=== PATIENT | female | born 1945 | race Caucasian/White ===

== ENCOUNTER 2025-06-01 13:11 | Outpatient (AMB) | payer MEDICARE, SELFPAY ==
--- NOTE | 2025-06-01 13:13 | MHC.OFFVIS ---
Vital Signs 06/01/25 13:20 Height 5 ft 3 in Weight 188 lb 6 oz BMI 33.4 BP 142/80 H Blood Pressure Location Rt brachial Pulse 61 Pulse Source Pulse Oximeter Pulse Oximetry (%) 94 Oxygen Delivery Method Room Air Intake Visit Reasons: ENP - Tremor Intake Note: Tremor Insurance Service Representative Required: No Accompanied by: Self / Same As Patient Allergies enalapril Allergy (Unknown, Verified 06/01/25 13:22) Unknown Medication List - Last Reconciled 06/01/25 by Elissa Beckham MD albuterol sulfate 90 mcg/actuation 2 puffs inhalation Q4-6H PRN amlodipine 5 mg PO DAILY aspirin 81 mg PO DAILY cholecalciferol (vitamin D3) 25 mcg PO DAILY clopidogrel 75 mg PO DAILY furosemide 20 mg PO DAILY gabapentin 100 mg PO BEDTIME levothyroxine 50 mcg PO DAILY mecobalamin (vitamin B12) 1,000 mcg sublingual DAILY ropinirole 2 mg PO BEDTIME triamcinolone acetonide 0.1% appl topical BID PRN venlafaxine ER 150 mg PO QAM HPI Comments Details: 79y/o Right handed female comes for evaluation of tremors she started noticing tremors in her hands about 1 year ago. The tremors are mostly with postures and action.No tremors at rest. Holding a cup of coffee is hard. She has trouble writing. No head or voice tremors she has restless legs - on ropinirole , reports shocking sensations , abnormal movemenst at rest and when she is trying to sleep. Once she falls asleep she is OK. No family h/o tremors No head injury. [facility] Medical History (Updated 06/01/25 @ 14:01 by Elissa Beckham MD) Restless legs syndrome (RLS) Coarse tremors Macular degeneration Osteoarthrosis Anxiety Esophageal reflux Chronic obstructive asthma Pulmonary emphysema Hyperlipidemia Hypothyroidism Lumbar canal stenosis RLS (restless legs syndrome) Vitamin D deficiency CKD stage 3b, GFR 30-44 ml/min Chronic kidney disease, stage III (moderate) HTN (hypertension) Impaired fasting glucose Melanosis coli Back pain of lumbar region with sciatica Bilateral hip joint arthritis Chronic pain of both knees Fatigue Foot pain, bilateral Lung nodule Post-traumatic osteoarthritis, right ankle and foot Hair loss Osteoarthritis of both feet Paresthesia Prediabetes Skin lesion Class 1 obesity Asthma Retinal artery occlusion Eczema Localized edema Hyperglycemia Tremors of nervous system Family History Other No family history of cancer Social History Alcohol intake: never Patient Tobacco Use Status: Never used Tobacco Physical Exam Vital Signs: Last Vital Signs Pulse 61 06/01/25 13:20 BP 142/80 H 06/01/25 13:20 Pulse Ox 94 06/01/25 13:20 Oxygen Delivery Method Room Air 06/01/25 13:20 BMI result Body Mass Index 33.4 Const General: cooperative, healthy appearing, comfortable and no acute distress Nutritional Appearance: overweight Orientation/consciousness: patient oriented x3 Eyes Pupils: Equal, round and reactive pupils present Neuro Other: derrick UE posturla and action tremors - mild she was able to do archimedes spiral with mild difficulty Gait- antalgic without cane General: patient oriented x3, tone normal, moves all extremities and no focal motor deficits Cranial nerves: Yes Facial sensation intact/muscles of mastication intact, Yes Equal, round and reactive pupils present, Yes Bilaterally intact EOM present, Yes Nystagmus not present, Yes Normal facial strength present, Yes Midline tongue present, Yes Symmetric palate elevation present, Yes Ability to bilaterally rotate head present and Yes Ability to bilaterally elevate shoulders present Cognition (Neuro): normal cognition Gait exam (Neuro): Antalgic gait present Motor exam (neuro): 5/5 motor strength present throughout and Normal motor muscle tone present throughout Deep tendon reflexes (DTR's): Right triceps reflex intensity grade: 1+, Left triceps reflex intensity grade: 1+, Rt Biceps (C5, C6): 1+, Left biceps reflex intensity grade: 1+, Right brachioradialis reflex intensity grade: 1+, Left brachioradialis reflex intensity grade: 1+, Right patellar reflex intensity grade: 1+ and Left patellar reflex intensity grade: 1+ Coordination: [id number] test normal Assessment & Plan Assessment & Plan (1) Coarse tremors: Comment: likely senile tremors Code(s): G25.2 - Other specified forms of tremor Category: Medical (2) Restless legs syndrome (RLS): Code(s): G25.81 - Restless legs syndrome Category: Medical Plan No evidence of parkinsons on todays exam Tremors doed not affect her ADLS - i will monitor her clinically and consider medictaions if she worsens\ I will change her ropirnirole to ER 4mg qhs for better controle Medications: New ropinirole ER 4 mg PO BEDTIME 30 tabs 6RF Coding Level of Care Code New Pt Level 4 (98385) Complex EM visit Add On G2211 Diagnoses Coarse tremors G25.2 Restless legs syndrome (RLS) G25.81 BFADL Questionnaire: Cut food with a knife and fork: 1 - Able to do activity without difficulty, Use a spoon to drink soup: 2 - Able to do activity with a little effort, Hold a cup of tea: 3 - Able to do activity with a lot of effort, Pour milk from a bottle or carton: 2 - Able to do activity with a little effort, Wash and dry dishes: 1 - Able to do activity without difficulty, Molt your teeth: 1 - Able to do activity without difficulty, Use a handkerchief to blow your nose: 1 - Able to do activity without difficulty, Use a bath: 1 - Able to do activity without difficulty, Use the lavoratory: 1 - Able to do activity without difficulty, Wash your face and hands: 1 - Able to do activity without difficulty, Do up buttons: 3 - Able to do activity with a lot of effort, Do up a zip: 2 - Able to do activity with a little effort, Write a letter: 3 - Able to do activity with a lot of effort, Put a letter in an envelope: 3 - Able to do activity with a lot of effort, Hold and read a newspaper: 2 - Able to do activity with a little effort, Dial a telephone: 3 - Able to do activity with a lot of effort, Make yourself understood on a telephone: 3 - Able to do activity with a lot of effort, Watch television: 1 - Able to do activity without difficulty, cupola tender helper your change in a shop: 3 - Able to do activity with a lot of effort, Inset an electrical plug into a socket: 3 - Able to do activity with a lot of effort, Unlock your front door with a penny: 3 - Able to do activity with a lot of effort, Walk up and down stairs: 3 - Able to do activity with a lot of effort, Get up out of an armchair: 2 - Able to do activity with a little effort and Carry a full shopping ba - Able to do activity with a little effort
[2025-06-01 13:20] VITALS: BP 142/80; PULSE 61; O2SAT 94; BMI 33.4
--- OUTSIDE RECORDS SUMMARY | 2025-06-01 14:36 | XMS_ITS | Clinical Summary ---
Author Organization [facility] Address [address] [place] [address] Phone Care Team Providers Care Gutter Mouth Cutter Name Role Phone Cameron Herrera MD Primary Care Provider Allergies Active Allergy Reactions Criticality Noted Date Comments Enalapril 12/27/2013 Enalapril Maleate 02/27/2021 Medications senna-docusate (PERICOLACE) 8.6-50 mg per tablet Take 1 tablet by mouth 1 (one) time each day if needed. 06/22/20 24 Active cyanocobalamin , vitamin B-12, 1,000 mcg capsule Take 1 capsule by mouth 1 (one) time each day. 11/03/19 24 Active cholecalcifero l (VITAMIN D-3) 25 mcg (1,000 unit) tablet Take by mouth. Active aspirin 81 mg EC tablet Take 1 tablet (81 mg total) by mouth 1 (one) time each day. 12/28/19 24 Active albuterol HFA (PROAIR HFA ; PROVENTIL HFA ; VENTOLIN HFA) 90 mcg/actuation inhaler Inhale 2 puffs by mouth every 4 (four) hours if needed. Active triamcinolone (KENALOG) 0.1 % cream Apply topically 2 (two) times a day. Active amLODIPine (NORVASC) 5 mg tablet Take 1 tablet (5 mg total) by mouth 1 (one) time each day. 90 each 3 12/15/19 25 026 Active cloNIDine (Catapres-TTS- 1) 0.1 mg/[address] 1 patch on the skin 1 (one) time per week. 13 each 3 12/15/19 25 026 Active venlafaxine XR (EFFEXOR-XR) 150 mg 24 hr capsule TAKE 1 CAPSULE BY MOUTH DAILY WITH BREAKFAST 90 capsule 1 01/03/20 25 Active levothyroxine (SYNTHROID, LEVOTHROID) 50 mcg tablet TAKE 1 TABLET BY MOUTH DAILY 90 tablet 1 01/11/20 25 Active rOPINIRole (REQUIP) 2 mg tablet TAKE 1 TABLET BY MOUTH DAILY AT LEAST 1 HOUR PRIOR TO BEDTIME 90 tablet 1 01/27/20 25 Active furosemide (LASIX) 20 mg tablet TAKE 1 TABLET(20 MG) BY MOUTH 1 TIME EACH DAY 90 tablet 05/23/20 25 Active clopidogreL (PLAVIX) 75 mg tablet TAKE 1 TABLET BY MOUTH DAILY 90 tablet 05/23/20 25 Active gabapentin (NEURONTIN) 100 mg capsule TAKE 1 CAPSULE BY MOUTH EVERY NIGHT AT BEDTIME 90 capsule 05/23/20 25 Active clopidogreL (PLAVIX) 75 mg tablet TAKE 1 TABLET BY MOUTH DAILY 90 tablet 1 10/31/19 25 025 Discontinued furosemide (LASIX) 20 mg tablet TAKE 1 TABLET(20 MG) BY MOUTH 1 TIME EACH DAY 90 tablet 02/25/20 25 025 Discontinued gabapentin (NEURONTIN) 100 mg capsule TAKE 1 CAPSULE BY MOUTH EVERY NIGHT AT BEDTIME 90 capsule 02/25/20 25 025 Discontinued Active Problems Problem Noted Date Diagnosed Date Tremors of nervous system 02/17/2025 Hyperglycemia 02/17/2025 Localized edema 12/14/2024 Eczema 09/09/2024 Retinal artery occlusion 09/09/2024 Asthma 09/09/2024 Class 1 obesity 06/23/2024 Skin lesion 06/22/2024 Prediabetes 10/21/2023 Paresthesia 10/21/2023 Osteoarthritis of both feet 10/21/2023 Hair loss 10/21/2023 Post-traumatic osteoarthritis, right ankle and f oot 10/21/2023 Lung nodule 10/07/2023 Foot pain, bilateral 10/07/2023 Fatigue 10/07/2023 Dyspnea 02/27/2021 Overview (06/23/2024): Dyspnea Chronic pain of both knees 04/27/2018 Bilateral hip joint arthritis 04/27/2018 Back pain of lumbar region with sciatica 018 Arthritis of both hips 04/27/2018 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 Baker is known to me from an L3-4, L4-5 decompression with L4-5 interbody fusion and L3-5 posterior lateral fusion on 03/08/2015 from which she did well. She was last seen here in 2019 for recurrent lower back pain for which she was continuing medical treatment. She presents now to review MRI findings after lumbar study was done in the setting of recurrent pain. She describes pain from my toes up to my neck mostly involving her joints but specifically bilateral knees where she has had TKRs. She was cleared by her orthopedic surgeon. She describes lower back pain into her hips and lateral thighs and numbness in her legs when laying or sitting down. It is unclear if this is related to her restless leg syndrome. She describes occasional urinary leak while walking on the stairs but otherwise remains continent. On exam, she has well-healed knee replacement scars. There is no step-off or deformity lumbar spine, seated SLR is negative, strength 5/5, sensation light touch intact, gait is steady with no assistive device. Review of the lumbar spine MRI from [facility] dated 02/26/2022 shows decompression and interbody grafts at L4-5 with partial bone growth through the grafts. There is intact pedicle screws from L3-L5 which are well-positioned and show no sign of failure. She has increased degenerative changes at the upper lumbar levels since her prior study and now shows severe central stenosis at L1-2 and moderate central stenosis at L2-3. I reviewed this in detail with Ms. Baker and its possible that the severe L1- 2 stenosis is contributing to some of her symptoms. This is not classic claudication where she gets relief with sitting and she does not feel that the back pain stands out in the setting of her the pain throughout her body. She is not interested in considering surgery at this time. She agreed to restarting physical therapy and a referral slip was provided. 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 ([facility] [place] [facility] [place]) 04/05/2015 Esophageal reflux 07/12/2014 Anxiety 07/12/2014 Osteoarthrosis 12/27/2013 Macular degeneration 12/27/2013 Chronic bilateral low back pain with bilateral s ciatica 04/25/2013 Obesity (BMI 30-39.9) 12/29/2012 Encounters Date Type Department Care Team Description 03/22/2025 11:00 AM EDT Consult Vascular Surgery - [place] [address] [facility] [address] [place] [address] Shelia Chand MD Leg swelling from Last 3 Months Immunizations Immunization Administration Dates Next Due Influenza Quadravalent, MDCK , 0.5ml, preservative free (Flucelvax) 6mo and older 07/21/2012 Influenza trivalent, 0.5mL ( Fluad) 65yo and older 05/10/2024,05/06/2023,06/10/2022,07/01,06/05/2020,06/13/2019,06/03/2018 ,06/26/2016,06/19/2015 Influenza trivalent, 0.5mL, preservative free (Fluarix; FluLaval; Fluzone) ages 6mo and older (Afluria) 3 years and older 05/19/2013,05/27/2011,06/03/2010,06/13 Pfizer SARS-CoV-2 COVID-19, mRNA, LNP-S, preservative free 08/28/2021 Pneumococcal conjugate 13 va lent (Prevnar 13, PCV13) 2mo and older 12/18/2014 Pneumococcal polysaccharide 23 valent (Pneumovax 23) 2yo and older 05/15/2009 Surgical History Surgery Date Site/Laterality Comments TOTAL KNEE ARTHROPLASTY PROCEDURE: DE ARTHRP KNE CONDYLE&PLATU MEDIAL&LAT COMPARTMENTS HYSTERECTOMY PROCEDURE: HISTORICAL HYSTERECTOMY BACK SURGERY 03/08/2015 PROCEDURE: HISTORICAL BACK SURGERY; COMMENT: Lumbar fusion Medical History Medical History Date Comments Esophageal reflux DX:Esophageal reflux Hearing loss DX:Hearing loss Essential hypertension DX:Essent ial hypertension Obesity DX:Obesity Vitamin D deficiency DX:Vitamin D deficiency Hyperlipidemia DX:Hyperlipidemi a Hypothyroid DX:Hypothyroid Macular degeneration DX:Macular degeneration Tinnitus, bilateral DX:Tinnitus, bilateral Rotator cuff tear DX:Rotator cuf f tear Restless leg syndrome DX:Restles s leg syndrome Bronchitis DX:Bronchitis Osteoarthritis DX:Osteoarthriti s Chronic kidney disease DX:Chroni c kidney disease Social History Tobacco Use Types Packs/Day Years Used Date Smoking Tobacco: Never Smokeless Tobacco: Never Tobacco Cessation:Counseling Given: Not Answered Housing Instability Answer Date Recorde d Are you worried that in the next 2 months you may not have stable housing? No 02/17/2025 Food Access & Nutrition Answer Date Rec orded Do you have access to a vari ety of food including fruits and vegetables? Yes 02/17/2025 Health Literacy Answer Date Recorded How often do you need to hav e someone help you when you read instructions, pamphlets, or other written material from your doctor or pharmacy? Never 02/17/2025 Caregiver: How often do you need to have someone help you when you read instructions, pamphlets, or other written material from your doctor or pharmacy? Not on file 02/17/2025 Financial Risk Answer Date Recorded How hard is it for you to pa y for the very basics like food, housing, medical care, and air conditioning / heating? Not very hard 02/17/2025 Transportation Answer Date Recorded Has the lack of transportati on kept you from meetings, work, or from getting things needed for daily living? No Has the lack of transportati on kept you from medical appointments or from getting medications? No 02/17/2025 Social Isolation Answer Date Recorded How often do you feel lonely or isolated from th ose around you? Never 02/17/2025 Food Risk Answer Date Recorded Within the past 12 months we worried whether our food would run out before we got money to buy more. Never true 02/17/2025 Within the past 12 months th e food we bought just didn't last and we didn't have money to get more. Never true 02/17/2025 Dependent Care Answer Date Recorded Do you need help finding or paying for care for your loved ones. For example, childcare aide or elderly care for an older adult? No 02/17/2025 Education Answer Date Recorded Do you think completing more education or training, like finishing a GED, going to college, or learning a trade, would be helpful for you? No 02/17/2025 Employment and Income Answer Date Recor ded During the last four weeks, have you been actively looking for work? No 02/17/2025 Living Situation Answer Date Recorded What is your living situation? Unrecognized valu e 02/17/2025 Comments Unknown Sex and Gender Information Value Date Recorded Sex Assigned at Not on file Legal Sex Female 7:12 PM EST Gender Identity Not on file Sexual Orientation Not on file Obstetrics History Last Filed Vital Signs Vital Sign Reading Time Taken Comments Blood Pressure 130/70 03/22/2025 10:52 AM EDT Pulse 72 03/22/2025 10:52 AM EDT Temperature 36 C (96.8 F) 02/17/2025 10:14 AM EDT Respiratory Rate 16 03/22/2025 10:52 AM EDT Oxygen Saturation 98% 12/21/2024 10:56 AM EDT Inhaled Oxygen Concentration - - Weight 83.9 kg (185 lb) 03/22/2025 10:52 AM EDT Height 154.9 cm (5' 1 ) 03/22/2025 10:52 AM EDT Body Mass Index 34.96 03/22/2025 10:52 AM EDT Plan of Treatment Upcoming Encounters Date Type Department Care Team (Late st Contact Info) Description 07/05/2025 4:15 PM EST Office Visit Nephrology [address] [address] Robert [facility] [address] [facility] [address] [place] [address] 07/19/2025 1:30 PM EST Office Visit [facility] [place] - [address] [phone] Cameron Herrera MD [address] [place] 02/23/2026 10:00 AM EDT Office Visit Adult Medicine [facility] [address] [place] [address] Cameron Herrera MD [address] [place] [address] [place] Health Maintenance Due Date Last Done Comments COVID-19 Vaccine (7 - Pfizer risk 2023- season) 2025 05/24/2024, 05/06/2023, 07/04/2022, Additional history exists Influenza Vaccine (#1) 2025 , 05/06/2023, 06/10/2022, Additional history exists DTaP,Tdap,and Td Vaccines (1 - Tdap) 08/31/2025 Postponed from 1962 (Patient Refused) RSV Immunization Adult Patients (1 - 1-dose 75+ series) 08/31/2025 Postponed from 2018 (Patient Refused) Zoster Vaccines (1 of 2) 08/31/2025 Pos tponed from 1962 (Patient Refused) Hypertension/CHF/CAD Annual BMP Blood Test 11/16/2025 11/16/2024, 09/14/2024, 05/10/2024, Additional history exists Falls Risk Assessment 02/17/2026 02/17/2025 Medicare Annual Wellness Visit 02/17/2026 02/17/2025 Social Influencers of Health Screening 02/17/2026 02/17/2025 Cholesterol Screening (Lipid Panel) 11/16/2029 11/16/2024, 09/14/2024, 02/26/2024 Osteoporosis Screening (Bone Density Screening) 09/14/2034 09/14/2024, 07/14/2019 Pneumococcal Vaccine: 50+ Years Completed 12/18/2014, 05/15/2009 Depression Screening Completed 02/17/2025 HIB Vaccines Aged Out No longer eligi ble based on patient's age to complete this topic HPV Vaccines Aged Out No longer eligi ble based on patient's age to complete this topic Hepatitis A Vaccines Aged Out No long er eligible based on patient's age to complete this topic Hepatitis B Vaccines Aged Out No long er eligible based on patient's age to complete this topic IPV Vaccines Aged Out No longer eligi ble based on patient's age to complete this topic MMR Vaccines Aged Out No longer eligi ble based on patient's age to complete this topic Meningococcal ACWY Vaccine Aged Out N o longer eligible based on patient's age to complete this topic Meningococcal B Vaccine Aged Out No l onger eligible based on patient's age to complete this topic RSV Immunization Patients Under 20 months Aged Out No longer eligible based on patient's age to complete this topic Varicella Vaccines Aged Out No longer eligible based on patient's age to complete this topic Procedures Procedure Name Priority Date/Time Associated Diagnosis Comments BASIC METABOLIC PANEL Routine 11/16/2024 11:10 AM EDT Other fatigue LIPID PANEL WITH REFLEX TO DIRECT LDL Routine 11/16/2024 11:10 AM EDT Hyperlipidemia, unspecified hyperlipidemia type BD BONE DENSITY DXA AXIAL SKELETON Routine 09/14/2024 10:32 AM EST Encounter for screening for osteoporosis from Last 3 Months or Most Recently Relevant to Health Maintenance Results * Lipid panel with reflex to direct LDL (11/16/2024 11:10 AM EDT) Cholesterol 174 0 - 200 mg/dL LAB CHEMISTRY METHOD 11/16/2024 4:56 PM EDT [facility] Triglycerides 79 0 - 150 mg/dL LAB CHEMISTRY METHOD 11/16/2024 4:56 PM EDT [facility] HDL 71 >=40 mg/dL LAB CHEMISTRY METHOD 11/16/2024 4:56 PM EDT [facility] LDL Calculated 87 0 - 100 mg/dL LAB CHEMISTRY METHOD 11/16/2024 4:56 PM EDT [facility] VLDL Cholesterol Diego 15.8 mg/dL LAB CHEMISTRY METHOD 11/16/2024 4:56 PM EDT [facility] Non HDL Chol. (LDL+VLDL) 103 <145 mg/dL LAB CHEMISTRY METHOD 11/16/2024 4:56 PM EDT [facility] Chol/HDL Ratio 2.5 0.0 - 4.4 LAB CHEMISTRY METHOD 11/16/2024 4:56 PM [facility] Blood Venous blood specimen / Unknown Venipuncture / Unknown 11/16/2024 11:10 AM EDT 11/16/2024 11:10 AM EDT us Cameron Herrera MD LAB BLOOD ORDERABLES Final Result [facility] [address] [place] [address], [place] [phone] * (ABNORMAL) Basic metabolic panel (11/16/2024 11:10 AM EDT) Sodium 145 133 - 145 mmol/L LAB CHEMISTRY METHOD 11/16/2024 4:34 PM [facility] Potassium 4.0 3.5 - 5.5 mmol/L LAB CHEMISTRY METHOD 11/16/2024 4:34 PM [facility] Chloride 111(H) 96 - 110 mmol/L LAB CHEMISTRY METHOD 11/16/2024 4:34 PM [facility] CO2 26 21 - 32 mmol/L LAB CHEMISTRY METHOD 11/16/2024 4:34 PM [facility] Anion Gap 8 3 - 11 LAB CHEMISTRY METHOD 11/16/2024 4:34 PM [facility] Glucose 121(H) 70 - 100 mg/dL LAB CHEMISTRY METHOD 11/16/2024 4:34 PM [facility] BUN 24 5 - 25 mg/dL LAB CHEMISTRY METHOD 11/16/2024 4:34 PM [facility] Creatinine 1.34(H) 0.50 - 1.10 mg/dL LAB CHEMISTRY METHOD 11/16/2024 4:34 PM EDT [facility] eGFR 40(L) >=60 mL/min/1. 73m2 LAB CHEMISTRY METHOD 11/16/2024 4:34 PM EDT [facility] Comment:Calculation based on the Chronic Kidney Disease Epidemiology Collaboration (CKD-EPI) equation refit without adjustment for race. BUN/Creatinine Ratio 17.9 LAB CHEMISTRY METHOD 11/16/2024 4:34 PM EDT [facility] Calcium 9.2 8.5 - 10.5 mg/dL LAB CHEMISTRY METHOD 11/16/2024 4:34 PM EDT [facility] Blood Venous blood specimen / Unknown Venipuncture / Unknown 11/16/2024 11:10 AM EDT 11/16/2024 11:10 AM EDT us Cameron Herrera MD LAB BLOOD ORDERABLES Final Result [facility] [address] [place] [address], * BD Bone Density DXA Axial Skeleton (09/14/2024 10:32 AM EST) Anatomical Region Laterality Modality Wrist, Hip, L-spine Bone Densito metry 09/14/2024 5:37 PM EST Impressions 09/14/2024 5:39 PM EST Normal bone density Reference Information: The T-score is the number of standard deviations above or below the standard which is normal for young adults at their peak bone mineral density. The World Health Organization (WHO) interprets the T-scores as follows: At or above -1 SD Normal bone density Between -1 and -2.5 SD Osteopenia At or below -2.5 SD Osteoporosis -------- FINAL REPORT -------- Dictated By: Mina Mclaughlin Dictated Date: 09/14/2024 17:37 ET Assigned Physician: Mina Mclaughlin Reviewed and Electronically Signed By: Mina Mclaughlin Signed Date: 09/14/2024 17:39 ET Workstation ID: [id number] Transcribed By: Self Edit Transcribed Date: 09/14/2024 17:37 ET Narrative 09/14/2024 5:39 PM EST STUDY: DUAL ENERGY X-RAY ABSORPTIOMETRY / DXA REASON FOR EXAM: Female, 79 years old screening for osteoporosis TECHNIQUE: Bone Mineral Density (BMD) measurements of the lumbar spine left hip and left forearm were obtained using [employer] Discovery W ([id number]). COMPARISON: None FINDINGS: L1-L2 BMD: 1.443 g/cm2 L1-L2 T score: 4.2. This corresponds to Normal bone density. Left forearm (1/3 radius) BMD: 0.637 g/cm2 Left forearm (1/3 radius) T score: -0.9. This corresponds to Normal bone density. Left femoral neck BMD: 0.905 g/cm2 Left femoral neck T score: 0.5. This corresponds to Normal bone density. Left total hip BMD: 0.900 g/cm2 Left total hip T score: -0.3. This corresponds to Normal bone density. Procedure Note Mina Mclaughlin MD - 09/14/2024 STUDY: DUAL ENERGY X-RAY ABSORPTIOMETRY / DXA REASON FOR EXAM: Female, 79 years old screening for osteoporosis TECHNIQUE: Bone Mineral Density (BMD) measurements of the lumbar spineleft hip and left forearm were obtained using [employer] W ([id number]). COMPARISON: None FINDINGS: L1-L2 BMD: 1.443 g/cm2 L1-L2 T score: 4.2. This corresponds to Normal bone density. Left forearm (1/3 radius) BMD: 0.637 g/cm2 Left forearm (1/3 radius) T score: -0.9. This corresponds to Normal bonedensity. Left femoral neck BMD: 0.905 g/cm2 Left femoral neck T score: 0.5. This corresponds to Normal bonedensity. Left total hip BMD: 0.900 g/cm2 Left total hip T score: -0.3. This corresponds to Normal bone density. IMPRESSION: Normal bone density Reference Information: The T-score is the number of standard deviations above or below thestandard which is normal for young adults at their peak bone mineraldensity. The World Health Organization (WHO) interprets the T-scores asfollows: At or above -1 SD Normal bone density Between -1 and -2.5 SD Osteopenia At or below -2.5 SD Osteoporosis -------- FINAL REPORT -------- Dictated By: Mina Mclaughlin Dictated Date: 09/14/2024 17:37 ET Assigned Physician: Mina Mclaughlin Reviewed and Electronically Signed By: Mina Mclaughlin Signed Date: 09/14/2024 17:39 ET Workstation ID: [id number] Transcribed By: Self Edit Transcribed Date: 09/14/2024 17:37 ET Cameron Herrera MD IM DXA PROCEDURES Final Re sult from Last 3 Months or Most Recently Relevant to Health Maintenance Insurance [employer] MED[employer]ARE [employer]VANTAGE Care Teams Gutter Mouth Cutter Relationship Specialty Start Date End Date Cameron Herrera MD [address] [place] [address] PCP - General 12/08/23
--- OUTSIDE RECORDS SUMMARY | 2025-06-01 14:36 | XMS_ITS | Clinical Summary ---
Author Organization [facility] Address [address] [place] [address] Care Team Providers Care Pickle Water Pump Operator Name Role Phone Cameron Herrera MD Primary Care Provider [phone] Allergies No known active allergies Medications Medication Sig Dispensed Refills Start Date End Date Status atorvastatin (LIPITOR) tablet 40 mg Take 1 tablet (40 mg total) by mouth daily. 1 04/20/2018 Active levothyroxine (SYNTHROID, LEVOXYL) tablet 50 mcg 1 TABLET ONCE A DAY ORALLY 90 DAYS 1 02/08/2018 Active lisinopril (PRINIVIL,ZESTRIL) tablet 20 mg 0 02/08/2018 Active rOPINIRole (REQUIP) 1 MG tablet Take 1 tablet (1 mg total) by mouth daily. 1 04/01/2018 Active venlafaxine (EFFEXOR-XR) 150 MG 24 hr capsule TAKE 1 CAPSULE WITH FOOD ONCE A DAY 1 04/20/2018 Active clopidogrel (PLAVIX) 75 MG tablet Take 1 tablet (75 mg total) by mouth daily. 0 Active Active Problems Problem Noted Date Diagnosed Date Chronic pain of both knees 04/27/2018 Back pain of lumbar region with sciatica 018 Bilateral hip joint arthritis 04/27/2018 Family History Medical History Relation Name Comments Heart disease Father Heart disease Mother Relation Name Status Comments Father Mother Social History Tobacco Use Types Packs/Day Years Used Date Smoking Tobacco: Never Assessed Sex and Gender Information Value Date Recorded Sex Assigned at Not on file Gender Identity Not on file Sexual Orientation Not on file Job Start Date Occupation Industry Not on file Not on file Not on file Last Filed Vital Signs Vital Sign Reading Time Taken Comments Blood Pressure 143/82 01/13/2024 11:26 AM EDT Pulse 86 01/13/2024 11:26 AM EDT Temperature 36.3 C (97.4 F) 01/13/2024 11:26 AM EDT Respiratory Rate - - Oxygen Saturation 100% 01/13/2024 11:26 AM EDT Inhaled Oxygen Concentration - - Weight 84.8 kg (187 lb) 01/13/2024 11:26 AM EDT Height 162.6 cm (5' 4 ) 04/27/2018 9:21 AM EDT Body Mass Index 32.1 04/27/2018 9:21 AM EDT Plan of Treatment Health Maintenance Due Date Last Done Comments Depression Screening 1955 Preventative Health Evaluation 1961 DTap / Tdap / Td (1 - Tdap) 1962 Shingrix-Zoster Vaccine (1 of 2) 1993 Fall Risk Assessment 2008 Osteoporosis Screening (DEXA Scan) 2008 RSV Adult > 60+ Yrs or (1 - 1-dose 75+ series) 2018 COVID-19 Vaccine ( season) 2025 08/28/2021, 11/01/2020, 10/11/2020 Influenza Vaccine (#1) 2025 3, 06/10/2022, 07/01/2021, Additional history exists Pneumococcal Vaccine Completed 12/18/2014, 05/15/20 09 Hepatitis B Vaccines Aged Out No long er eligible based on patient's age to complete this topic RSV Ped < 20 months Aged Out No longe r eligible based on patient's age to complete this topic Care Teams Pickle Water Pump Operator Relationship Specialty Start Date End Date Cameron Herrera MD [address] [place] [address] PCP - General Internal Medicine 12/08/23
--- OUTSIDE RECORDS SUMMARY | 2025-06-01 14:36 | XMS_ITS | Clinical Summary ---
Author Organization [email or web address] Address [address] [place] [address] Care Team Providers Care Furnace Stock Inspector Name Role Phone Unavailable Primary Care Provider Unavailabl e Social History Tobacco Use Types Packs/Day Years Used Date Smoking Tobacco: Never Assessed Comments Unknown Sex and Gender Information Value Date Recorded Sex Assigned at Female 02/12/2024 11:39 AM EDT Legal Sex Female 11:39 AM EDT Gender Identity Choose not to disclose 11:39 AM EDT Sexual Orientation Not on file Plan of Treatment Health Maintenance Due Date Last Done Comments Depression Screening 1943 Lipid Panel 1943 SDOH Screening 1943 Alcohol/Substance Use Screening 1955 Tobacco Screening 1955 DTaP/Tdap/Td Vaccines (1 - Tdap) 1962 Zoster Vaccines (1 of 2) 1993 RSV Patients and Patients Aged 60 years or older (1 - 1-dose 75+ series) 2018 COVID-19 Vaccine (2 - season) 2025 08/28/2021 Influenza Vaccine (#1) 2025 4, 05/06/2023, 06/10/2022, Additional history exists Pneumococcal Vaccine: 50+ Years Completed 12/18/2014, 05/15/2009 HIB Vaccines Aged Out No longer eligi [...] patient's age to complete this topic Meningococcal Vaccine Aged Out No elizabeth letitia eligible based on patient's age to complete this topic RSV under 20 months Aged Out No longe r eligible based on patient's age to complete this topic Rotavirus Vaccines Aged Out No longer eligible based on patient's age to complete this topic Insurance [facility]
== END 2025-06-01 13:53 | disposition home or self-care (01) ==
LOC: HO.HSMS 13:11
PROVIDERS: PCP Internal Medicine; Visit Provider Psychiatry & Neurology Neurology
DX: G25.2 Other specified forms of tremor (principal); G25.81 Restless legs syndrome
CPT/HCPCS: 99204; G2211

== ENCOUNTER → 2025-06-01 13:11 | Outpatient (BNVA) | payer MEDICARE, SELFPAY | PROVIDERS: PCP Internal Medicine; Visit Provider Psychiatry & Neurology Neurology | DX: G25.81 Restless legs syndrome (principal); G25.2 Other specified forms of tremor | CPT/HCPCS: 99202 ==